=== PATIENT | male | born 1970 | race Caucasian/White ===

== ENCOUNTER 2016-07-15 17:31 | Emergency (ER) | payer BC | END 2016-07-15 21:20 | disposition home or self-care (01) | LOC: ER1 17:31 | DX: S90.32XA Contusion of left foot, initial encounter (principal); W22.8XXA Striking against or struck by other objects, initial encounter; Y92.69 Other specified industrial and construction area as the place of occurrence of the external cause; Y99.8 Other external cause status | CPT/HCPCS: 73610; 73630; 93926; 93971; 99284 ==

== ENCOUNTER → 2021-10-30 | Outpatient (CLI) | payer BC | LOC: MRI 08:30 | DX: R79.89 Other specified abnormal findings of blood chemistry (principal); K76.9 Liver disease, unspecified; R16.1 Splenomegaly, not elsewhere classified | CPT/HCPCS: 74183; A9577 ==